=== PATIENT | male | born 1940 | race American Indian/Alaskan Native ===

== ENCOUNTER 2019-07-22 16:21 | Emergency (ER) | payer MEDICARE ==
--- NOTE | 2019-07-22 18:48 | Event Note ---
ED Screening Note Date of service: 07/22/19 Time: 18:44 ED Screening Note: This is a 79 y.o. M. that presents to the ER with painful rash to abdomen and back for 1 day. Patient also reports dizziness and cough for several days. This initial assessment/diagnostic orders/clinical plan/treatment(s) is/are subject to change based on patients health status, clinical progression and re- assessment by fellow clinical providers in the ED. Further treatment and workup at subsequent clinical providers discretion. Patient/guardian urged not to elope from the ED as their condition may be serious if not clinically assessed and managed. Initial orders include: labs
[2019-07-22 19:35] LABS: Hematocrit 42.6 % (35.5-45.6); Hemoglobin 14.2 gm/dl (11.8-15.2); Mean Corpuscular HGB Conc 33 % (32-34); Mean Corpuscular Volume 78 fl (84-94); Platelet Count 256 K/mm3 (140-440); Red Blood Count 5.47 M/mm3 (3.65-5.03); Red Cell Distribution Width 17.1 % (13.2-15.2)
--- NOTE | 2019-07-22 19:50 | XRay Report ---
CHEST 2 VIEWS INDICATION / CLINICAL INFORMATION: cough. COMPARISON: 03/24/2010 FINDINGS: SUPPORT DEVICES: None. HEART / MEDIASTINUM: No significant abnormality. LUNGS / PLEURA: No significant pulmonary or pleural abnormality. No pneumothorax. ADDITIONAL FINDINGS: Mild to moderate elevation of the left hemidiaphragm. This is a new finding comp ared with 2010. IMPRESSION: 1. No acute pulmonary disease. 2. Mildly elevated left hemidiaphragm. This is a new finding compared with prior chest radiograph fro m 2009. Signer Name: Kristin Crump MD Signed: 07/22/2019 7:45 PM Workstation Name: [id number]
[2019-07-22 19:55] LABS: Calcium 9.4 mg/dL (8.4-10.2)
[2019-07-22 20:13] LABS: Basophils % (Manual) 0 % (0.0-1.8); Eosinophils % (Manual) 0 % (0.0-4.3); Total Cells Counted 100
[2019-07-22 20:14] LABS: Anisocytosis 1+; Ovalocytes Few; Platelet Estimate Consistent w Auto; Tear Drop Cells Rare
--- NOTE | 2019-07-22 22:48 | Emergency Department Report ---
ED General Adult HPI - General Chief complaint: Skin Rash Stated complaint: ABD RASH Time Seen by Provider: 07/22/19 18:39 Source: patient Mode of arrival: Ambulatory Limitations: No Limitations - History of Present Illness Initial comments: Patient is 79 years old male with history of hypertension. Patient presented to the ER complaining of rash to the left abdomen and left flank area for the last 7 days. Patient describes his rash as physicals and then interrupted, painful. Patient denied any fever, nausea or vomiting. Patient is also complaining of cough, productive with greenish sputum for the last 7 days. Patient denied any shortness of breath or chest pain. - Related Data Allergies Allergy/AdvReac Type Severity Reaction Status Date / Time No Known Allergies Allergy Unverified 07/22/19 16:56 ED Review of Systems ROS: Stated complaint: ABD RASH Other details as noted in HPI Comment: All other systems reviewed and negative Constitutional: denies: chills, fever Respiratory: cough. denies: orthopnea, shortness of breath, SOB with exertion, SOB at rest, wheezing Cardiovascular: denies: chest pain, palpitations Gastrointestinal: denies: abdominal pain, nausea, vomiting, diarrhea, constipation, hematemesis, melena, hematochezia Musculoskeletal: denies: back pain Neurological: denies: headache, weakness, numbness, paresthesias, confusion, abnormal gait ED Past Medical Hx - Past Medical History Hx Hypertension: Yes - Surgical History Past Surgical History?: No - Social History Smoking Status: Never Smoker Substance Use Type: None ED Physical Exam - General Limitations: No Limitations General appearance: alert, in no apparent distress - Head Head exam: Present: atraumatic, normocephalic, normal inspection - Eye Eye exam: Present: normal appearance - ENT ENT exam: Present: normal exam, normal orophraynx, mucous membranes moist - Neck Neck exam: Present: normal inspection, full ROM. Absent: tenderness, meningismus, lymphadenopathy, thyromegaly - Respiratory Respiratory exam: Present: normal lung sounds bilaterally. Absent: respiratory distress, wheezes, rales, rhonchi, chest wall tenderness, accessory muscle use, decreased breath sounds, prolonged expiratory - Cardiovascular Cardiovascular Exam: Present: regular rate, normal rhythm, normal heart sounds - GI/Abdominal GI/Abdominal exam: Present: soft, normal bowel sounds, other (rash to the left abdomen and left back). Absent: distended, tenderness, guarding, rebound, rigid, organomegaly, mass, bruit, pulsatile mass, hernia - Extremities Exam Extremities exam: Present: normal inspection, full ROM, normal capillary refill. Absent: pedal edema, calf tenderness - Back Exam Back exam: Present: normal inspection, full ROM. Absent: CVA tenderness (R), CVA tenderness (L) - Neurological Exam Neurological exam: Present: alert, oriented X3, CN II-XII intact, normal gait, reflexes normal - Psychiatric Psychiatric exam: Present: normal mood - Skin Skin exam: Present: warm, intact, rash, vesicles ED Course Vital Signs 07/22/19 07/22/19 18:42 21:16 Temperature 98.1 F 97.7 F Pulse Rate 105 H 92 H Respiratory 16 19 Rate Blood Pressure 160/69 156/75 [Left] O2 Sat by Pulse 97 98 Oximetry ED Medical Decision Making - Lab Data Result diagrams: 07/22/19 18:53 07/22/19 18:53 - Radiology Data Radiology results: report reviewed - Medical Decision Making Patient is 79 years old male with history of hypertension. Patient presented to the ER complaining of rash to the left abdomen and left flank area for the last 7 days. Patient describes his rash as physicals and then interrupted, painful. Patient denied any fever, nausea or vomiting. Patient is also complaining of cough, productive with greenish sputum for the last 7 days. Patient denied any shortness of breath or chest pain. Labs reviewed and is unremarkable. Chest x-ray is unremarkable. Patient rash is consistent with [place]. Patient given a prescription for acyclovir. Patient also found to have acute bronchitis and given a prescription for amoxicillin and advised to follow-up with his primary care physician in the next 2-3 days and to return to the ER if symptoms are not improved. Critical care attestation.: If time is entered above; I have spent that time in minutes in the direct care of this critically ill patient, excluding procedure time. ED Disposition Clinical Impression: Shingles rash, Acute bronchitis Disposition: TO HOME OR SELFCARE Is pt being admited?: No Condition: Stable Instructions: Acute Bronchitis (ED), Herpes Zoster (ED) Referrals: [facility] [Other] - 3-5 Days
[2019-07-22 22:56] VITALS: BP 140/65
== END 2019-07-22 23:20 | disposition home or self-care (01) ==
LOC: ED 16:21
DX: B02.9 Zoster without complications (principal); J20.9 Acute bronchitis, unspecified; I10 Essential (primary) hypertension
CPT/HCPCS: 36415; 71046; 80048; 85007; 85025